=== PATIENT | female | born 1985 | race African-American/Black ===

== ENCOUNTER 2022-05-17 09:08 | Emergency (ER) | payer MEDICARE ==
[~2022-05-17] VITALS: Ht 175.3 cm; Wt 105.7 kg
[2022-05-17] MEDS ORDERED: FAMOTIDINE 20 MG/2 ML VIAL IV STA (10:40)
[2022-05-17] MEDS ORDERED: SODIUM CHLORIDE 0.9% 1000ML 1,000 ML IV SCH (10:45)
[2022-05-17] MEDS ORDERED: IOPAMIDOL 370 MG/ML 100 ML INFUS..BTL INJ ONE (10:54)
[2022-05-17] MEDS ORDERED: SODIUM CHLORIDE 0.9% 1000ML 1,000 ML ONE (11:05)
[2022-05-17] MEDS ORDERED: FAMOTIDINE 20 MG/2 ML VIAL IV ONE (11:05)
[2022-05-17] MEDS ORDERED: FAMOTIDINE40 MG PO (13:11)
[2022-05-17] MEDS ORDERED: PANTOPRAZOLE SO40 MG PO (13:12)
[2022-05-17] MEDS ORDERED: AMLODIPINE BESY10 MG PO (13:13)
[2022-05-17] MEDS ORDERED: COREG12.5 MG PO (13:17)
[2022-05-17] MEDS ORDERED: ONDANSETRON ODT4 MG PO (13:18)
== END 2022-05-17 13:30 | disposition home or self-care (01) ==
LOC: FSED 09:11
DX: K20.90 Esophagitis, unspecified without bleeding (principal); R13.10 Dysphagia, unspecified; K21.9 Gastro-esophageal reflux disease without esophagitis; E04.9 Nontoxic goiter, unspecified; I10 Essential (primary) hypertension; J45.909 Unspecified asthma, uncomplicated; F41.9 Anxiety disorder, unspecified; M79.7 Fibromyalgia; F17.200 Nicotine dependence, unspecified, uncomplicated; Z88.5 Allergy status to narcotic agent; Z88.8 Allergy status to other drugs, medicaments and biological substances
CPT/HCPCS: 70491; 71260; 80053; 81003; 81025; 85025; 99284; J7030; Q9967